=== PATIENT | male | born 1960 ===

== ENCOUNTER 2022-03-08 09:45 | Inpatient (IN) | payer OTHER ==
[~2022-03-08] VITALS: Ht 180.3 cm; Wt 114.3 kg
[2022-03-08] MEDS ORDERED: SYNTHROID75 MCG PO (10:09)
[2022-03-08] MEDS ORDERED: COZAAR100 MG PO (10:09)
[2022-03-08] MEDS ORDERED: AMLODIPINE-OLM1 EAC3 (10:10)
[2022-03-08] MEDS ORDERED: CRESTOR10 MG PO (10:10)
[2022-03-13] MEDS ORDERED: AMLODIPINE BESY10 MG (07:48)
[2022-03-13] MEDS ORDERED: LOSARTAN-HCTZ1 EAC2 (07:48)
[2022-03-13] MEDS ORDERED: STOOL SOFTENER240 MG (07:48)
== END 2022-03-15 12:47 | disposition home or self-care (01) | DRG 331 ==
LOC: ADM 09:45 → O/R 03-13 06:25 → SURG 03-13 09:45 → CIR.AMB 03-13 09:45 → EDSTATUS 03-13 09:45 → SURG 03-13 11:00
PROVIDERS: ADMIT Colon & Rectal Surgery; ATTEND Colon & Rectal Surgery
PROC: 0DBL3ZZ Excision of Transverse Colon, Percutaneous Approach (ICD-10-PCS; 2022-03-13)
PROC: 0DTF4ZZ Resection of Right Large Intestine, Percutaneous Endoscopic Approach (ICD-10-PCS; principal; 2022-03-13 11:00)
DX: C18.4 Malignant neoplasm of transverse colon (principal); Z85.038 Personal history of other malignant neoplasm of large intestine; I10 Essential (primary) hypertension; G47.30 Sleep apnea, unspecified